=== PATIENT | male | born 1950 | race African-American/Black ===

== ENCOUNTER 2016-08-17 18:04 | Emergency (ER) | payer MEDICARE, OTHER ==
[~2016-08-17] VITALS: Ht 170.2 cm; Wt 80.0 kg
[~2016-08-17 18:04] MED LIST: ALTACE 10MG TAB10 MG PO; ALTACE 5MG5 MG PO; ASPIRIN 81M81 MG/TA2; ASPIRIN 81M81 MG/TA2 PO; ATORVASTATIN PO; CARDI-OMEGA1000 MG PO; CEPHALEXIN500 M1 PO; CLARITIN 1010 MG/TAB PO; FLOMAX 0.40.4 MG/CAP PO; FLONASE NASAL S16 GM NS; LIPITOR 40MG TA40 MG PO; LOPRESSOR 550 MG/TAB PO; LOPRESSOR100 MG PO; LOPRESSOR50 MG PO; MULTIPLE VITAMI1 CAP PO; NEXIUM 40MG40 MG PO; NEXIUM40 MG PO; NORVASC 10MG10 MG PO; PANCRELIPASE; PERCOCET 325 MG1 TA2 PO; PREDNISONE20 MG PO; TOPROL XL 50MG50 MG PO; VIAGRA 25MG TAB25 MG PO; ZOFRAN4 M1 PO
[2016-08-17 18:09] VITALS: TEMP 98.5
[2016-08-17 18:43] LABS: BASO % 0.4 % (0.0-2.0); EOS # 0.3 (0.0-0.7); EOS % 3.4 % (0-4.0); GRAN # 3.7 (1.4-6.5); GRAN % 47.9 % (42.2-75.2); HEMATOCRIT 47.2 % (42.0-52.0); HEMOGLOBIN 15.6 g/dl (13.5-18.0); LYMPH # 2.9 (1.2-3.4); LYMPH % 38.1 % (20.0-51.0); MEAN CELL VOLUME 81 fl (80.0-100.0); MEAN CORPUSCULAR HEMOGLOBIN 27 pg (27.0-31.0); MEAN CORPUSCULAR HGB CONC 33 g/dl (33.0-37.0); MEAN PLATELET VOLUME 10.2 fl (7.4-10.4); MONO # 0.8 (0.1-0.6); MONO % 10.1 % (1.7-9.3); PLATELET COUNT 231 K/mm3 (130-400); RED BLOOD COUNT 5.85 M/mm3 (4.20-5.60); REDCELL DISTRIBUTION WIDTH-CV 12.6 % (11.5-14.5); WHITE BLOOD COUNT 7.6 K/mm3 (4.8-10.8)
[2016-08-17 18:54] LABS: ALANINE AMINOTRANSFERASE 58 U/L (21-72); ALBUMIN 4.6 gm/dL (3.5-5.0); ALKALINE PHOSPHATASE 119 U/L (50-136); AMYLASE 108 U/L (30-110); ANION GAP 14 mmol/L (7-16); BILIRUBIN,TOTAL 0.7 mg/dL (0.0-1.0); BLOOD UREA NITROGEN 10 mg/dL (9-20); CALCIUM 9.5 mg/dL (8.4-10.2); CARBON DIOXIDE 28 mmol/L (22-30); CHLORIDE 101 mmol/L (98-107); CREATININE, serum 1.13 mg/dL (0.66-1.25); GLUCOSE 134 mg/dL (74-106); LIPASE 197 U/L (23-300); SODIUM 142 mmol/L (137-145); TOTAL PROTEIN 8.3 gm/dL (6.4-8.2)
[2016-08-17 19:19] LABS: PH 7 (5-8); SQUAMOUS EPITHELIAL 0-2 /hpf; URINE BACTERIA None Seen /hpf; URINE BILIRUBIN Negative (NEGATIVE); URINE BLOOD Negative (NEGATIVE); URINE COLOR Yellow; URINE GLUCOSE Negative (NEGATIVE); URINE KETONE Negative (NEGATIVE); URINE RBC 0-2 /hpf; URINE UROBILINOGEN Negative (NEGATIVE); URINE WBC 0-2 /hpf
[2016-08-17 19:20] LABS: URINE APPEARANCE Clear
[2016-08-17 19:25] LABS: INR 0.9 (0.8-3.0); PROTHROMBIN TIME 10.4 SECONDS (9.7-12.8)
[2016-08-17 19:27] LABS: PARTIAL THROMBOPLASTIN TIME 31.2 SECONDS (26.0-37.0)
[2016-08-17 19:50] LABS: TROPONIN-I < 0.012 ng/mL (0.000-0.034)
[2016-08-17 20:46] VITALS: BP 149/83; PULSE 61
== END 2016-08-17 20:46 | disposition home or self-care (01) ==
LOC: COL.ER 18:04
PROVIDERS: Emergency Medicine
DX: R10.84 Generalized abdominal pain (principal); F41.9 Anxiety disorder, unspecified; I10 Essential (primary) hypertension; Z87.891 Personal history of nicotine dependence; Z87.11 Personal history of peptic ulcer disease; Z95.1 Presence of aortocoronary bypass graft
CPT/HCPCS: J2060; J2765; J3010; J7030; Q9967

== ENCOUNTER 2016-09-16 03:11 | Emergency (ER) | payer MEDICARE, OTHER ==
[~2016-09-16] VITALS: Ht 170.2 cm; Wt 80.9 kg
[2016-09-16 03:38] LABS: BASO % 0.1 % (0.0-2.0); EOS % 0.1 % (0-4.0); GRAN # 13.1 (1.4-6.5); GRAN % 79.6 % (42.2-75.2); HEMATOCRIT 49.1 % (42.0-52.0); HEMOGLOBIN 16.4 g/dl (13.5-18.0); LYMPH # 1.8 (1.2-3.4); MEAN CELL VOLUME 80 fl (80.0-100.0); MEAN CORPUSCULAR HEMOGLOBIN 27 pg (27.0-31.0); MEAN CORPUSCULAR HGB CONC 33 g/dl (33.0-37.0); MEAN PLATELET VOLUME 9.5 fl (7.4-10.4); MONO # 1.5 (0.1-0.6); PLATELET COUNT 240 K/mm3 (130-400); RED BLOOD COUNT 6.17 M/mm3 (4.20-5.60); REDCELL DISTRIBUTION WIDTH-CV 12.6 % (11.5-14.5); WHITE BLOOD COUNT 16.4 K/mm3 (4.8-10.8)
[2016-09-16 03:47] LABS: ADJUSTED CALCIUM 9.4 mg/dL (8.4-10.2); ALBUMIN 4.8 gm/dL (3.5-5.0); BILIRUBIN,TOTAL 0.8 mg/dL (0.0-1.0); CREATININE, serum 1.19 mg/dL (0.66-1.25); POTASSIUM 4.6 mmol/L (3.4-5.0)
[2016-09-16] MEDS ORDERED: LEVAQUIN 750MG750 M1 PO (05:01)
[2016-09-16 05:15] VITALS: BP 144/83; PULSE 62; TEMP 98.4
== END 2016-09-16 05:20 | disposition home or self-care (01) ==
LOC: COL.ER 03:11
PROVIDERS: Emergency Medicine
DX: R51 Headache (principal); J06.9 Acute upper respiratory infection, unspecified; R59.0 Localized enlarged lymph nodes; I10 Essential (primary) hypertension
CPT/HCPCS: J1885; J2550; J7040

== ENCOUNTER 2016-12-31 21:02 | Emergency (ER) | payer MEDICARE, OTHER ==
[~2016-12-31] VITALS: Ht 170.2 cm; Wt 77.3 kg
[~2016-12-31 21:02] MED LIST changes: +LEVAQUIN 750MG750 M1 PO
[2016-12-31 21:04] VITALS: TEMP 98.7
[2016-12-31 21:27] LABS: BASO % 0.3 % (0.0-2.0); EOS # 0.1 (0.0-0.7); EOS % 1.7 % (0-4.0); GRAN # 5.4 (1.4-6.5); GRAN % 68.8 % (42.2-75.2); HEMATOCRIT 44.2 % (42.0-52.0); HEMOGLOBIN 14.8 g/dl (13.5-18.0); LYMPH # 1.6 (1.2-3.4); LYMPH % 20.2 % (20.0-51.0); MEAN CELL VOLUME 80 fl (80.0-100.0); MEAN CORPUSCULAR HEMOGLOBIN 27 pg (27.0-31.0); MEAN CORPUSCULAR HGB CONC 34 g/dl (33.0-37.0); MEAN PLATELET VOLUME 10.1 fl (7.4-10.4); MONO # 0.7 (0.1-0.6); MONO % 8.7 % (1.7-9.3); PLATELET COUNT 196 K/mm3 (130-400); RED BLOOD COUNT 5.52 M/mm3 (4.20-5.60); REDCELL DISTRIBUTION WIDTH-CV 12.8 % (11.5-14.5); WHITE BLOOD COUNT 7.8 K/mm3 (4.8-10.8)
[2016-12-31 21:33] LABS: PH 8 (5-8); URINE APPEARANCE Clear; URINE BILIRUBIN Negative (NEGATIVE); URINE BLOOD Negative (NEGATIVE); URINE COLOR Yellow; URINE GLUCOSE 3+ (NEGATIVE); URINE KETONE Negative (NEGATIVE); URINE UROBILINOGEN Negative (NEGATIVE)
[2016-12-31 21:38] LABS: ADJUSTED CALCIUM 8.4 mg/dL (8.4-10.2); ALANINE AMINOTRANSFERASE 53 U/L (21-72); ALBUMIN 4.6 gm/dL (3.5-5.0); ALKALINE PHOSPHATASE 96 U/L (50-136); ANION GAP 16 mmol/L (7-16); BILIRUBIN,TOTAL 0.7 mg/dL (0.0-1.0); BLOOD UREA NITROGEN 14 mg/dL (9-20); CALCIUM 8.9 mg/dL (8.4-10.2); CARBON DIOXIDE 24 mmol/L (22-30); CHLORIDE 103 mmol/L (98-107); CREATININE, serum 0.95 mg/dL (0.66-1.25); GLUCOSE 192 mg/dL (74-106); LIPASE 180 U/L (23-300); POTASSIUM 3.6 mmol/L (3.4-5.0); SODIUM 142 mmol/L (137-145); TOTAL PROTEIN 8.1 gm/dL (6.4-8.2)
[2016-12-31 21:39] LABS: C-REACTIVE PROTEIN < 0.5 mg/dL (0.0-0.9); URINE WBC 0-2 /hpf
[2016-12-31 21:40] LABS: SQUAMOUS EPITHELIAL 0-2 /hpf; URINE RBC 0-2 /hpf
[2016-12-31 21:49] LABS: TROPONIN-I < 0.012 ng/mL (0.000-0.034)
[2016-12-31] MEDS ORDERED: PROTONIX 40MG T40 MG PO (22:52)
[2016-12-31] MEDS ORDERED: ZOFRAN ODT4 MG PO (22:52)
[2016-12-31 23:04] VITALS: BP 133/75; PULSE 71
== END 2016-12-31 23:06 | disposition home or self-care (01) ==
LOC: COL.ER 21:02
PROVIDERS: Emergency Medicine
DX: R10.13 Epigastric pain (principal); R11.2 Nausea with vomiting, unspecified; R19.7 Diarrhea, unspecified; I25.10 Atherosclerotic heart disease of native coronary artery without angina pectoris; I10 Essential (primary) hypertension
CPT/HCPCS: J2405; J2550; J7030; Q9967

== ENCOUNTER 2017-03-09 11:53 | Emergency (ER) | payer MEDICARE, OTHER ==
[~2017-03-09] VITALS: Ht 170.2 cm; Wt 79.1 kg
[~2017-03-09 11:53] MED LIST changes: +PROTONIX 40MG T40 MG PO; +ZOFRAN ODT4 MG PO
[2017-03-09 11:58] VITALS: TEMP 98
[2017-03-09 12:52] LABS: BASO % 0.1 % (0.0-2.0); EOS # 0.2 (0.0-0.7); EOS % 2.2 % (0-4.0); GRAN # 4.3 (1.4-6.5); GRAN % 62.4 % (42.2-75.2); HEMATOCRIT 45.6 % (42.0-52.0); HEMOGLOBIN 15.2 g/dl (13.5-18.0); LYMPH # 1.9 (1.2-3.4); LYMPH % 27.4 % (20.0-51.0); MEAN CELL VOLUME 80 fl (80.0-100.0); MEAN CORPUSCULAR HEMOGLOBIN 27 pg (27.0-31.0); MEAN CORPUSCULAR HGB CONC 33 g/dl (33.0-37.0); MEAN PLATELET VOLUME 9.3 fl (7.4-10.4); MONO # 0.5 (0.1-0.6); MONO % 7.6 % (1.7-9.3); PLATELET COUNT 226 K/mm3 (130-400); WHITE BLOOD COUNT 6.8 K/mm3 (4.8-10.8)
[2017-03-09 12:55] LABS: PROTHROMBIN TIME 10.5 SECONDS (9.7-12.8)
[2017-03-09 12:58] LABS: PARTIAL THROMBOPLASTIN TIME 32.5 SECONDS (26.0-37.0)
[2017-03-09 13:01] LABS: ADJUSTED CALCIUM 8.9 mg/dL (8.4-10.2); ALANINE AMINOTRANSFERASE 65 U/L (21-72); ALBUMIN 4.8 gm/dL (3.5-5.0); ALKALINE PHOSPHATASE 99 U/L (50-136); AMYLASE 85 U/L (30-110); ANION GAP 13 mmol/L (7-16); BILIRUBIN,TOTAL 0.7 mg/dL (0.0-1.0); BLOOD UREA NITROGEN 12 mg/dL (9-20); CALCIUM 9.5 mg/dL (8.4-10.2); CARBON DIOXIDE 26 mmol/L (22-30); CHLORIDE 102 mmol/L (98-107); CREATININE, serum 0.97 mg/dL (0.66-1.25); GLUCOSE 123 mg/dL (74-106); LIPASE 171 U/L (23-300); POTASSIUM 4.2 mmol/L (3.4-5.0); SODIUM 141 mmol/L (137-145); TOTAL PROTEIN 8.4 gm/dL (6.4-8.2)
[2017-03-09 13:12] LABS: TROPONIN-I < 0.012 ng/mL (0.000-0.034)
[2017-03-09 13:56] VITALS: BP 140/86; PULSE 56
== END 2017-03-09 13:58 | disposition home or self-care (01) ==
LOC: COL.ER 11:53
PROVIDERS: Physician Assistant
DX: R53.81 Other malaise (principal); R11.0 Nausea; I10 Essential (primary) hypertension; I25.10 Atherosclerotic heart disease of native coronary artery without angina pectoris; I25.2 Old myocardial infarction; Z87.19 Personal history of other diseases of the digestive system; Z79.82 Long term (current) use of aspirin; Z95.1 Presence of aortocoronary bypass graft; Z90.89 Acquired absence of other organs

== ENCOUNTER 2022-03-01 15:54 | Emergency (ER) | payer MEDICARE, OTHER ==
[~2022-03-01] VITALS: Ht 170.2 cm; Wt 72.7 kg
[2022-03-01 16:02] VITALS: TEMP 99.1
[2022-03-01 16:28] LABS: BASO % 0.4 % (0.0-2.0); EOS # 0.2 K/mm3 (0.0-0.7); EOS % 2.4 % (0.0-4.0); GRAN # 4.5 K/mm3 (1.4-6.5); GRAN % 57.4 % (42.2-75.2); HEMATOCRIT 43.6 % (42.0-52.0); HEMOGLOBIN 14.9 g/dl (13.5-18.0); LYMPH # 2.4 K/mm3 (1.2-3.4); LYMPH % 29.9 % (20.0-51.0); MEAN CELL VOLUME 79 fl (80.0-100.0); MEAN CORPUSCULAR HEMOGLOBIN 27 pg (27-31); MEAN CORPUSCULAR HGB CONC 34 g/dl (33.0-37.0); MEAN PLATELET VOLUME 9.8 fl (7.4-10.4); MONO # 0.8 K/mm3 (0.1-0.6); MONO % 9.6 % (1.7-9.3); PLATELET COUNT 218 K/mm3 (130-400); RED BLOOD COUNT 5.49 M/mm3 (4.20-5.60); REDCELL DISTRIBUTION WIDTH-CV 12.4 % (11.5-14.5)
[2022-03-01 16:41] LABS: ALANINE AMINOTRANSFERASE 22 U/L (0-55); ALBUMIN 4.3 gm/dL (3.4-4.8); ALKALINE PHOSPHATASE 77 U/L (40-150); ANION GAP 16 mmol/L (7-16); AST,SGOT 14 U/L (5-34); BILIRUBIN,TOTAL 0.6 mg/dL (0.2-1.2); BLOOD UREA NITROGEN 10 mg/dL (8-26); CALCIUM 9.7 mg/dL (8.4-10.2); CARBON DIOXIDE 24 mmol/L (23-31); CHLORIDE 100 mmol/L (98-107); CREATININE, serum 1.03 mg/dL (0.72-1.25); GLUCOSE 135 mg/dL (70-99); POTASSIUM 3.4 mmol/L (3.5-4.5); SODIUM 140 mmol/L (136-145); TOTAL PROTEIN 7.9 gm/dL (6.2-8.1)
[2022-03-01 16:47] LABS: TROPONIN-I < 0.010 ng/mL (0.00-0.033)
[2022-03-01] MEDS ORDERED: FLOMAX 0.40.4 MG/CAP PO (17:33)
[2022-03-01] MEDS ORDERED: PROTONIX 40MG T40 MG PO (17:33)
[2022-03-01] MEDS ORDERED: CELEBREX 200MG200 MG PO (17:34)
[2022-03-01] MEDS ORDERED: ATIVAN 0.50.5 MG/TAB PO (17:35)
[2022-03-01] MEDS ORDERED: GLUCOPHAGE XR750 MG PO (17:35)
[2022-03-01] MEDS ORDERED: HCTZ 25MG TAB25 MG PO (17:36)
[2022-03-01] MEDS ORDERED: PERCOCET 325 MG1 TA2 PO (17:36)
[2022-03-01] MEDS ORDERED: DOXYCYCLINE HY100 MG PO (17:37)
[2022-03-01 17:47] VITALS: BP 132/81; PULSE 70
== END 2022-03-01 17:49 | disposition home or self-care (01) ==
LOC: COL.ER 15:54
PROVIDERS: Emergency Medicine
DX: R07.81 Pleurodynia (principal); Z87.891 Personal history of nicotine dependence; Z95.1 Presence of aortocoronary bypass graft; Z20.822 Contact with and (suspected) exposure to COVID-19